=== PATIENT | male | born 1990 | race Caucasian/White ===

== ENCOUNTER 2018-02-20 22:27 | Emergency (ER) | payer SELFPAY ==
[2018-02-20 22:51] VITALS: O2SAT 99
[2018-02-20 23:58] LABS: BASO # 0.1 K/uL (0.0-0.2); BASO % 2.1 % (0.0-2.0); EOS % 0.1 % (0.0-4.0); HEMOGLOBIN 17.1 g/dL (12.0-18.0); LYMPH # 2.3 K/uL (1.0-4.3); LYMPH % 37.8 % (20.0-40.0); MEAN CELL VOLUME 84.7 fL (80.0-94.0); MEAN CORPUSCULAR HEMOGLOBIN 28.8 pg (27.0-31.0); MEAN PLATELET VOLUME 10.9 fL (7.2-11.7); MONO # 0.4 K/uL (0.0-0.8); MONO % 6.3 % (0.0-10.0); NEUT # 3.3 K/uL (1.8-7.0); NEUT % 53.7 % (50.0-75.0); RBC 5.92 Mil/uL (4.40-5.90); RED CELL DISTRIBUTION WIDTH 13.4 % (11.5-14.5); WHITE BLOOD COUNT 6.1 K/uL (4.8-10.8)
[2018-02-21 00:12] LABS: ALB/GLOB RATIO 1.4 (1.0-2.1); ALBUMIN 5.2 g/dL (3.5-5.0); ALT/SGPT 33 U/L (21-72); AST/SGOT 33 U/L (17-59); BLOOD UREA NITROGEN 7 mg/dL (9-20); CALCIUM 9.4 mg/dl (8.6-10.4); GFR AFRICAN-AMERICAN > 60; GFR NON-AFRICAN AMERICAN > 60; LIPASE 105 U/L (23-300)
[2018-02-21 00:39] LABS: URINE BILIRUBIN NEGATIVE (NEGATIVE); URINE BLOOD NEGATIVE (NEGATIVE); URINE CLARITY Clear (Clear); URINE COLOR Yellow (YELLOW); URINE GLUCOSE (UA) NORMAL (Normal); URINE LEUKOCYTE ESTERASE NEG Leu/uL (Negative); URINE PROTEIN NEGATIVE (NEGATIVE); URINE UROBILINOGEN NORMAL mg/dL (0.2-1.0)
--- NOTE | 2018-02-21 00:55 | C.PDOC ---
History Of Present Illness 27 year old male patient presents to the ER with c/o abdominal pain. Patient states he has had the pain for x2 weeks. Patient reports his diet contains of junk food. Patient denies fever, chills, nausea, vomiting, and diarrhea. Time Seen by Provider: 02/20/18 23:05 Chief Complaint (Nursing): Abdominal Pain History Per: Patient History/Exam Limitations: no limitations Onset/Duration Of Symptoms: Days (x2 weeks) Current Symptoms Are (Timing): Still Present Location Of Pain/Discomfort: Diffuse Past Medical History Reviewed: Historical Data, Nursing Documentation, Vital Signs Vital Signs: Last Vital Signs Temp 98.5 F 02/21/18 01:25 Pulse 88 02/21/18 01:25 Resp 16 02/21/18 01:25 BP 134/87 02/21/18 01:25 Pulse Ox 99 02/21/18 01:25 Family History: States: Unknown Family Hx - Social History Hx Alcohol Use: Yes Hx Substance Use: No - Immunization History Hx Influenza Vaccination: No Hx Pneumococcal Vaccination: No Review Of Systems Except As Marked, All Systems Reviewed And Found Negative. Constitutional: Negative for: Fever, Chills Gastrointestinal: Positive for: Abdominal Pain. Negative for: Nausea, Vomiting , Diarrhea Physical Exam - Physical Exam Appears: Well, Non-toxic, No Acute Distress Skin: Normal Color, Warm, Dry Head: Atraumatic Eye(s): bilateral: Normal Inspection Neck: Normal ROM, Supple Chest: Symmetrical, No Deformity Cardiovascular: Rhythm Regular Respiratory: Normal Breath Sounds Gastrointestinal/Abdominal: Soft, No Tenderness, Other (dull percussion sound on the right; (-) mcburney's and (-) melendez's) Back: No CVA Tenderness Extremity: Normal ROM (x4) Neurological/Psych: Oriented x3, Normal Speech, Normal Motor, Normal Sensation, Normal Reflexes Gait: Steady ED Course And Treatment - Laboratory Results Result Diagrams: 02/20/18 23:53 02/20/18 23:53 Lab Interpretation: Normal (UA neg.) O2 Sat by Pulse Oximetry: 99 (RA) Pulse Ox Interpretation: Normal - Radiology CXR: Interpreted by Me CXR Interpretation: Yes: No Acute Disease - Other Rad abd x 2 X-Ray: Interpreted by Me (FOS, increased stool/gas) Reevaluation Time: 00:51 Reassessment Condition: Unchanged (remains asymptomatic now) Medical Decision Making Medical Decision Making: Plans: -- blood work -- obstructive series XR -- UA obstipation Disposition Doctor Will See Patient In The: Office Counseled Patient/Family Regarding: Studies Performed, Diagnosis - Disposition Referrals: [facility] [Outside] [facility] [Outside] [facility] [Outside] Disposition: HOME/ ROUTINE Disposition Time: 00:55 Condition: GOOD Additional Instructions: bee un purgante ahora y re-evalua baker molestia del abdomen despues de usar el ras 2-3 veces Reccomendo: rhona botella de Citrato de Magnesio entero. dieta mas saludable come 7 verduras y frutas crudas diarios bee mas agua Purgante occasionalmente maynor necessario. Sigue en la [facility] maynor necessario Instructions: Constipation, Adult (DC) Forms: [employer] (Kazakh) Print Language: ARGENTINE - Clinical Impression Clinical Impression: Abdominal colic - Scribe Statement The provider has reviewed the documentation as recorded by the Rema Garcia Do Provider Attestation: All medical record entries made by the Scribe were at my direction and personally dictated by me. I have reviewed the chart and agree that the record accurately reflects my personal performance of the history, physical exam, medical decision making, and the department course for this patient. I have also personally directed, reviewed, and agree with the discharge instructions and disposition.
[2018-02-21 01:50] VITALS: BP 134/87; PULSE 88; RESP 16; TEMP 98.5
--- NOTE | 2018-02-21 11:02 | RAD ---
Abdomen four views History: Abdominal pain. Comparison: None available. Findings: Moderate fecal retention in the colon. Relative paucity of small bowel gas. Mild venous congestion. Right hilar prominence. Mild cardiomegaly. Degenerative changes in spine. Impression: Fecal retention in the colon.
== END 2018-02-21 01:30 | disposition home or self-care (01) ==
LOC: C.ER 22:27
DX: R10.84 Generalized abdominal pain (principal)